=== PATIENT | male | born 1985 | race African-American/Black ===

== ENCOUNTER 2018-08-22 13:45 | Emergency (ER) | payer OTHER ==
[2018-08-22 13:56] VITALS: BP 135/84; PULSE 74; TEMP 98.2; BMI 25.0
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
[2018-08-22] MEDS ORDERED: IBUPROFEN 400 MG TABLET (FP) PO ONE ×2 (14:40→14:44)
== END 2018-08-22 15:02 | disposition home or self-care (01) ==
LOC: FER 13:45
DX: S43.402A Unspecified sprain of left shoulder joint, initial encounter (principal); X58.XXXA Exposure to other specified factors, initial encounter; Y93.89 Activity, other specified; Y92.219 Unspecified school as the place of occurrence of the external cause; Y99.0 Civilian activity done for income or pay; J45.909 Unspecified asthma, uncomplicated
CPT/HCPCS: 73030-TC-LT-FY; 99282-25